=== PATIENT | male | born 1965 | race Caucasian/White ===

== ENCOUNTER 2017-11-01 11:53 | Emergency (ER) | payer SELFPAY ==
[~2017-11-01] VITALS: Ht 177.8 cm; Wt 83.9 kg
--- NOTE | 2017-11-01 12:52 | Diagnostic Imaging Report ---
EXAMINATION: Head CT HISTORY: Vertigo, left-sided weakness COMPARISON: Head CT on 06/19/2014 TECHNIQUE: Multidetector axial images were obtained without contrast from the foramen magnum to the vertex . The images were reconstructed using brain and bone algorithms. Thin section brain images were reformatted into coronal and sagittal planes. Intravenous contrast: None. Motion/streaking artifact limits the evaluation of the skull base and posterior cranial fossa. FINDINGS: Parenchyma: 1. No abnormal densities. 2. No mass or hemorrhage. No CT evidence of acute territorial vascular insult. Extra-axial spaces:No abnormal density. No extra-axial fluid collections Brain volume: Normal for age. Ventricles: No hydrocephalus or displacement. Stable asymmetry of the temporal horns with mild prominence of the right compared to the left, likely a variation of the anatomy, less likely related to volume loss. Arteries: No density suggestive of thrombus. Dural sinuses: No abnormal density. Extra-axial spaces: No abnormal density. Foramen magnum: No mass, Chiari malformation, or basilar invagination. Sella: No obvious mass. Paranasal/mastoid sinuses: Imaged portions unremarkable. Skull/Scalp: No lytic or blastic lesions. No fractures. IMPRESSION: No acute intracranial abnormalities, particularly no hemorrhage or acute cortical infarct. Signed by: Dr. Erica Cassidy M.D. on 11/01/2017 12:49 PM
--- NOTE | 2017-11-01 13:10 | Diagnostic Imaging Report ---
PROCEDURE: X-RAY CHEST, TWO VIEWS COMPARISON: None. INDICATIONS: DIZZINESS, HEADACHE FINDINGS: LUNGS: No consolidations or edema. PLEURA: No effusions or pneumothorax. HEART \T\ MEDIASTINUM: The heart is within normal size-limits. Tortuous thoracic aorta. BONES \T\ SOFT TISSUES: No acute findings. Partially visualized left cervical plate. CONCLUSION: No acute thoracic abnormality. Andrew Kumar D.O. Dictated by: Andrew Kumar D.O. on 11/01/2017 at 13:09 Electronically approved by: Andrew Kumar D.O. on 11/01/2017 at 13:09
[2017-11-01 14:01] LABS: BILIRUBIN,URINE NEGATIVE (NEGATIVE); KETONES,URINE NEGATIVE (NEGATIVE); LEUKOCYTE ESTERASE ,URINE NEGATIVE (NEGATIVE); NITRITE,URINE NEGATIVE (NEGATIVE); PROTEIN,URINE DIPSTICK NEGATIVE (NEGATIVE); URINE UROBILINOGEN 0.2 mg/dL (0.2 - 1)
[2017-11-01 14:06] LABS: CLARITY,URINE CLEAR (CLEAR); COLOR,URINE YELLOW (YELLOW)
[2017-11-01 14:23] LABS: BASOPHILS % 0.5 % (0.0-1.0); EOSINOPHILS # (AUTO) 0.1 (0.0-0.4); EOSINOPHILS % 1.7 % (0.0-6.0); HEMATOCRIT 50.3 % (38.2-49.6); HEMOGLOBIN 17.4 g/dL (14.0-18.0); LYMPHOCYTES # (AUTO) 2.3 (1.0-3.2); LYMPHOCYTES % 29.8 % (18.0-39.1); MEAN CORPUSCULAR HEMOGLOBIN 29.4 pg (28-32); MEAN CORPUSCULAR HGB CONC 34.6 g/dL (31-35); MONOCYTES # (AUTO) 0.4 (0.2-0.8); MONOCYTES % 4.7 % (4.4-11.3); PLATELET COUNT 197 x10e3/uL (140-360); RED BLOOD COUNT 5.92 x10e6/uL (4.3-5.7); RED CELL DISTRIBUTION WIDTH 12.3 % (11.7-14.4)
[2017-11-01 14:32] LABS: INR 1.03; PROTHROMBIN TIME 12.7 seconds (11.9-14.5)
[2017-11-01 14:33] LABS: PARTIAL THROMBOPLASTIN TIME 26.1 seconds (23.8-35.5)
[2017-11-01 14:42] LABS: ALANINE AMINOTRANSFERASE 27 IU/L (0-55); ALBUMIN 4.2 g/dL (3.5-5.0); ALBUMIN/GLOBULIN RATIO 1.2 (0.8-2.0); ALKALINE PHOSPHATASE 79 IU/L (40-150); ANION GAP 12.9 mmol/L (8-16); BLOOD UREA NITROGEN 22 mg/dL (7-26); BUN/CREATININE RATIO 22 (6-25); CALCIUM 9.4 mg/dL (8.4-10.2); CARBON DIOXIDE 26 mmol/L (22-29); CHLORIDE 106 mmol/L (98-107); CREATINE KINASE 225 IU/L (30-200); CREATININE, SERUM 0.99 mg/dL (0.72-1.25); EST GLOMERULAR FILTRATION RATE > 60 ML/MIN (60-); GLUCOSE 74 mg/dL (74-118); POTASSIUM 3.9 mmol/L (3.5-5.1); SODIUM 141 mmol/L (136-145)
[2017-11-01] MEDS ORDERED: METOCLOPRAMIDE HCL 10 MG/2ML VIAL IV ONE (16:15)
[2017-11-01] MEDS ORDERED: DIPHENHYDRAMINE HCL INJ 50 MG/ML VIAL IV ONE (16:15)
[2017-11-01] MEDS ORDERED: SODIUM CHLORIDE 0.9% 500ML 500 ML IV ONE (16:15)
--- NOTE | 2017-11-01 16:51 | Diagnostic Imaging Report ---
EXAMINATION: CT angiogram of the [place] and neck with contrast CLINICAL HISTORY: Severe dizzy spells COMPARISON: None available TECHNIQUE: The head and neck was scanned utilizing a multidetector helical scanner from the thoracic inlet to the vertex after the I.V contrast administration of 100 mL of Isovue 370 mg . Multiplanar sagittal and coronal reconstructions were performed as well. FINDINGS: The are no areas of abnormal density or enhancement in the brain. There is no mass, hemorrhage or extra-axial fluid collection. The CSF containing spaces are normal in size, position and configuration. CT ANGIOGRAM OF THE [place]: The internal carotid artery segments as well as the middle cerebral and anterior cerebral arteries are normal in caliber. The vertebro-basilar circulation is normal. No vascular malformation or aneurysmal dilatation is seen. The draining venous structures are normal and patent. Anatomic variation: Anterior Communicating Artery: Nonvisualized Posterior Communicating Arteries: Patent bilaterally Vertebral arteries: The left is dominant CT ANGIOGRAM OF THE NECK: If present, stenosis of the carotid bulbs is measured based on NASCET criteria i.e area of maximum stenosis compared to the cervical ICA distal to the bulb. The origin of the vessels is patent bilaterally. Carotid bulbs: Minimal calcified atherosclerotic plaque in the left carotid bulb without associated stenosis (0%). Unremarkable right carotid bulb Right Carotid Artery: The common carotid, internal and external carotid arteries at the level of the neck are normal in caliber, and patent, no evidence of stenoses. Left carotid artery: The common carotid, internal and external carotid arteries at the level of the neck are normal in caliber, and patent, no evidence of stenoses. Vertebral Arteries: Both are normal in morphology and caliber. Both are codominant. No significant stenosis is seen. Incidental findings: Status post ACDF from C3 to C7. Few dental cavities and periapical lucencies. IMPRESSION: Unremarkable CT angiogram of the [place] and neck. Particularly no major vessel occlusion or hemodynamically significant stenosis is seen in the head or neck. Signed by: Dr. Erica Cassidy M.D. on 11/01/2017 4:48 PM
--- NOTE | 2017-11-01 16:51 | Diagnostic Imaging Report ---
EXAMINATION: CT angiogram of the [place] and neck with contrast CLINICAL HISTORY: Severe dizzy spells COMPARISON: None available TECHNIQUE: The head and neck was scanned utilizing a multidetector helical scanner from the thoracic inlet to the vertex after the I.V contrast administration of 100 mL of Isovue 370 mg . Multiplanar sagittal and coronal reconstructions were performed as well. FINDINGS: The are no areas of abnormal density or enhancement in the brain. There is no mass, hemorrhage or extra-axial fluid collection. The CSF containing spaces are normal in size, position and configuration. CT ANGIOGRAM OF THE [place]: The internal carotid artery segments as well as the middle cerebral and anterior cerebral arteries are normal in caliber. The vertebro-basilar circulation is normal. No vascular malformation or aneurysmal dilatation is seen. The draining venous structures are normal and patent. Anatomic variation: Anterior Communicating Artery: Nonvisualized Posterior Communicating Arteries: Patent bilaterally Vertebral arteries: The left is dominant CT ANGIOGRAM OF THE NECK: If present, stenosis of the carotid bulbs is measured based on NASCET criteria i.e area of maximum stenosis compared to the cervical ICA distal to the bulb. The origin of the vessels is patent bilaterally. Carotid bulbs: Minimal calcified atherosclerotic plaque in the left carotid bulb without associated stenosis (0%). Unremarkable right carotid bulb Right Carotid Artery: The common carotid, internal and external carotid arteries at the level of the neck are normal in caliber, and patent, no evidence of stenoses. Left carotid artery: The common carotid, internal and external carotid arteries at the level of the neck are normal in caliber, and patent, no evidence of stenoses. Vertebral Arteries: Both are normal in morphology and caliber. Both are codominant. No significant stenosis is seen. Incidental findings: Status post ACDF from C3 to C7. Few dental cavities and periapical lucencies. IMPRESSION: Unremarkable CT angiogram of the [place] and neck. Particularly no major vessel occlusion or hemodynamically significant stenosis is seen in the head or neck. Signed by: Dr. Erica Cassidy M.D. on 11/01/2017 4:48 PM
[2017-11-01 17:19] VITALS: BP 145/88
[2017-11-01] MEDS ORDERED: SODIUM CHLORIDE 0.9% 50ML 100 ML ONE (18:01)
[2017-11-01] MEDS ORDERED: IOPAMIDOL 370 MG/ML 200 ML INFUS..BTL INJ ONE (18:01)
== END 2017-11-01 17:22 | disposition home or self-care (01) ==
LOC: ER 11:53
DX: R51 Headache (principal)
CPT/HCPCS: 36415; 70450; 70496; 70498; 71046; 80053; 81001; 82550; 82553; 84484; 85025; 85610; 85730; 87086; 93005; 99284; J1200; J2765; J7040; Q9967

== ENCOUNTER 2020-02-21 11:52 | Emergency (ER) | payer SELFPAY ==
[~2020-02-21] VITALS: Ht 177.8 cm; Wt 90.7 kg
[2020-02-21] MEDS ORDERED: ONDANSETRON HCL INJ 2MG/ML 2ML 2 MG/ML VIAL IV STA (12:55)
[2020-02-21] MEDS ORDERED: MORPHINE SULFATE INJ 4 MG/ML INJ 1ML IV PRN (13:00)
[2020-02-21 13:27] LABS: BILIRUBIN,URINE NEGATIVE (NEGATIVE); CLARITY,URINE CLEAR (CLEAR); COLOR,URINE YELLOW (YELLOW); KETONES,URINE NEGATIVE (NEGATIVE); LEUKOCYTE ESTERASE ,URINE NEGATIVE (NEGATIVE); NITRITE,URINE NEGATIVE (NEGATIVE); PROTEIN,URINE DIPSTICK NEGATIVE (NEGATIVE); URINE UROBILINOGEN 0.2 mg/dL (0.2 - 1)
[2020-02-21 13:38] LABS: BASOPHILS % 0.5 % (0.0-1.0); EOSINOPHILS # (AUTO) 0.1 (0.0-0.4); EOSINOPHILS % 2.4 % (0.0-6.0); HEMATOCRIT 51.1 % (38.2-49.6); HEMOGLOBIN 17.1 g/dL (14.0-18.0); LYMPHOCYTES # (AUTO) 2.2 (1.0-3.2); LYMPHOCYTES % 38.3 % (18.0-39.1); MEAN CORPUSCULAR HEMOGLOBIN 28.6 pg (28-32); MEAN CORPUSCULAR HGB CONC 33.5 g/dL (31-35); MEAN CORPUSCULAR VOLUME 85.6 fL (81-99); MONOCYTES # (AUTO) 0.5 (0.2-0.8); MONOCYTES % 8.6 % (4.4-11.3); NEUTROPHILS # (AUTO) 2.9 (2.1-6.9); NEUTROPHILS % 49.9 % (38.7-80.0); PLATELET COUNT 191 x10e3/uL (140-360); RED BLOOD COUNT 5.97 x10e6/uL (4.3-5.7); RED CELL DISTRIBUTION WIDTH 12.5 % (11.7-14.4)
[2020-02-21 13:39] LABS: EPITHELIAL CELLS,URINE RARE /LPF; WBC,URINE (MAN) 0-5 /HPF (0-5)
--- NOTE | 2020-02-21 14:01 | Diagnostic Imaging Report ---
EXAMINATION: CHEST SINGLE (PORTABLE) INDICATION: Abdominal pain COMPARISON: None FINDINGS: LINES/TUBES:None LUNGS:The lungs are well-inflated. No focal consolidation or pulmonary edema. PLEURA:No pleural effusion or pneumothorax. MEDIASTINUM:The cardiomediastinal silhouette appears normal in size and shape. BONES/SOFT TISSUES:No acute osseous injury. Partially visualized cervical spine fusion hardware. ABDOMEN:No free air under the diaphragm. IMPRESSION: No focal pneumonia or pulmonary edema. Signed by: Phil Weeks MD on 02/21/2020 1:58 PM
[2020-02-21 14:02] LABS: ALANINE AMINOTRANSFERASE 51 IU/L (0-55); ALBUMIN 4.4 g/dL (3.5-5.0); ALBUMIN/GLOBULIN RATIO 1.1 (0.8-2.0); ALKALINE PHOSPHATASE 106 IU/L (40-150); ANION GAP 12.6 mmol/L (8-16); BLOOD UREA NITROGEN 18 mg/dL (7-26); BUN/CREATININE RATIO 17 (6-25); CALCIUM 9.8 mg/dL (8.4-10.2); CARBON DIOXIDE 26 mmol/L (22-29); CHLORIDE 104 mmol/L (98-107); CREATINE KINASE 179 IU/L (30-200); CREATININE, SERUM 1.09 mg/dL (0.72-1.25); EST GLOMERULAR FILTRATION RATE > 60 ML/MIN (60-); GLUCOSE 74 mg/dL (74-118); POTASSIUM 3.6 mmol/L (3.5-5.1); SODIUM 139 mmol/L (136-145)
--- NOTE | 2020-02-21 14:28 | Emergency Department Note ---
History of Present Illnes History of Present Illness Chief Complaint: Abdominal Complaints History of Present Illness This is a 54 year old male admitted to the ED with history of right lower quadrant abdominal pain worse with motion. Historian: Patient Arrival Mode: Car Collector Required: No Onset (how long ago): week(s) Radiation: Reports non-radiation Severity: moderate Progression: worsening Chronicity: new Associated symptoms: Reports denies other symptoms Past Medical/Family History Physician Review I have reviewed the patient's past medical and family history. Any updates have been documented here. Past Medical History Recent Fever: No Clinical Suspicion of Infectio: No New/Unexplained Change in Ment: No Past Medical History: Chronic Back Pain Past Surgical History: Back Surgery Other Surgery: ACDF - 2008 LUM MARY - 2000 Social History Smoking Cessation: Former smoker Counseling Performed: No Alcohol Use: None Any Illegal Drug Use: No TB Exposure/Symptoms: No Physically hurt or threatened: No Family History Family history of heart diseas: No Other Last Tetanus: UNKNOWN Any Pre-Existing Lines (PICC,: No Is patient up to date on immun: Yes Last Flu: OOD Last Pneumovax: NA Review of Systems Review of Systems Constitutional: Reports no symptoms EENTM: Reports no symptoms Cardiovascular: Reports no symptoms Respiratory: Reports no symptoms Gastrointestinal: Reports no symptoms, Reports as per HPI, Reports abdominal pain, Reports nausea; Denies diarrhea, Denies vomiting Genitourinary: Reports no symptoms Musculoskeletal: Reports no symptoms Integumentary: Reports no symptoms Neurological: Reports no symptoms Psychological: Reports no symptoms Endocrine: Reports no symptoms Hematological/Lymphatic: Reports no symptoms Physical Exam Related Data Allergies: Coded Allergies: No Known Allergies (Unverified , 11/01/17) Triage Vital Signs Vital Signs Date Time Temp Pulse Resp B/P (MAP) Pulse Ox O2 Delivery O2 Flow Rate FiO2 02/21/20 12:04 98.3 74 16 161/101 99 Vital signs reviewed: Yes Physical Exam CONSTITUTIONAL Constitutional: Present well-developed, Present well-nourished HENT HENT: Present normocephalic, Present atraumatic, Present oropharynx clear/moist, Present nose normal HENT L/R: Present left ext ear normal, Present right ext ear normal EYES Eyes: Reports PERRL, Reports conjunctivae normal NECK Neck: Present ROM normal PULMONARY Pulmonary: Present effort normal, Present breath sounds normal CARDIOVASCULAR Cardiovascular: Present regular rhythm, Present heart sounds normal, Present c apillary refill normal, Present normal rate GASTROINTESTINAL Abdominal: Present soft, Present bowel sounds normal, Present tender GENITOURINARY Genitourinary: Present exam deferred SKIN Skin: Present warm, Present dry MUSCULOSKELETAL Musculoskeletal: Present ROM normal NEUROLOGICAL Neurological: Present alert, Present oriented x 3, Present no gross motor or sensory deficits PSYCHOLOGICAL Psychological: Present mood/affect normal, Present judgement normal Results Laboratory Result Diagram: 02/21/20 1300 02/21/20 1300 Laboratory Laboratory Tests Test 02/21/20 13:00 02/21/20 12:50 White Blood Count 5.83 x10e3/uL (4.8-10.8) Red Blood Count 5.97 x10e6/uL (4.3-5.7) Hemoglobin 17.1 g/dL (14.0-18.0) Hematocrit 51.1 % (38.2-49.6) Mean Corpuscular Volume 85.6 fL (81-99) Mean Corpuscular Hemoglobin 28.6 pg (28-32) Mean Corpuscular Hemoglobin Concent 33.5 g/dL (31-35) Red Cell Distribution Width 12.5 % (11.7-14.4) Platelet Count 191 x10e3/uL (140-360) Neutrophils (%) (Auto) 49.9 % (38.7-80.0) Lymphocytes (%) (Auto) 38.3 % (18.0-39.1) Monocytes (%) (Auto) 8.6 % (4.4-11.3) Eosinophils (%) (Auto) 2.4 % (0.0-6.0) Basophils (%) (Auto) 0.5 % (0.0-1.0) Neutrophils # (Auto) 2.9 (2.1-6.9) Lymphocytes # (Auto) 2.2 (1.0-3.2) Monocytes # (Auto) 0.5 (0.2-0.8) Eosinophils # (Auto) 0.1 (0.0-0.4) Basophils # (Auto) 0.0 (0.0-0.1) Absolute Immature Granulocyte (auto 0.02 x10e3/uL (0-0.1) Sodium Level 139 mmol/L (136-145) Potassium Level 3.6 mmol/L (3.5-5.1) Chloride Level 104 mmol/L (98-107) Carbon Dioxide Level 26 mmol/L (22-29) Anion Gap 12.6 mmol/L (8-16) Blood Urea Nitrogen 18 mg/dL (7-26) Creatinine 1.09 mg/dL (0.72-1.25) Estimat Glomerular Filtration Rate > 60 ML/MIN (60-) BUN/Creatinine Ratio 17 (6-25) Glucose Level 74 mg/dL (74-118) Calcium Level 9.8 mg/dL (8.4-10.2) Total Bilirubin 0.3 mg/dL (0.2-1.2) Aspartate Amino Transf (AST/SGOT) 28 IU/L (5-34) Alanine Aminotransferase (ALT/SGPT) 51 IU/L (0-55) Alkaline Phosphatase 106 IU/L (40-150) Creatine Kinase 179 IU/L (30-200) Creatine Kinase MB 1.00 ng/mL (0-4.3) Troponin I < 0.05 ng/mL (0.0-0.40) Total Protein 8.3 g/dL (6.5-8.1) Albumin 4.4 g/dL (3.5-5.0) Globulin 3.9 g/dL (2.3-3.5) Albumin/Globulin Ratio 1.1 (0.8-2.0) Lipase 21 U/L (8-78) Urine Color Yellow (YELLOW) Urine Clarity Clear (CLEAR) Urine pH 5.5 (5 - 7) Urine Specific [place] >=1.030 (1.010-1.025) Urine Protein Negative (NEGATIVE) Urine Glucose (UA) Negative (NEGATIVE) Urine Ketones Negative (NEGATIVE) Urine Blood Negative (NEGATIVE) Urine Nitrite Negative (NEGATIVE) Urine Bilirubin Negative (NEGATIVE) Urine Urobilinogen 0.2 mg/dL (0.2 - 1) Urine Leukocyte Esterase Negative (NEGATIVE) Urine RBC None /HPF (0-5) Urine WBC 0-5 /HPF (0-5) Urine Epithelial Cells Rare /LPF (NONE) Urine Bacteria None /HPF (NONE) Lab results reviewed: Yes Imaging Imaging results reviewed: Yes Procedures 12 Lead ECG Interpretation ECG Interpretation : ECG: ECG 1 Collector: Interpreted by ED physician Rhythm: sinus bradycardia QRS axis: normal ST segments normal: Yes T waves normal: Yes Clinical Impression: normal ECG Assessment & Plan Medical Decision Making MDM 54-year-old male arrives to the ED with complaints of right lower quadrant abdominal pain for one month. Patient clinically appeared uncomfortable upon arrival, lab work and imaging performed in the emergency department unremarkable. EKG, cardiac markers and chest x-ray done to ensure no atypical presentation of acute coronary syndrome was missed in the emergency department. The preceding findings were also normal. Patient discharged home with outpatient gastroenterology follow-up, I personally made the appointment the patient to go to the outpatient clinic. Assessment & Plan Final Impression: (1) Abdominal pain Depart Disposition: HOME, SELF-CARE Last Vital Signs Date Time Temp Pulse Resp B/P (MAP) Pulse Ox O2 Delivery O2 Flow Rate FiO2 02/21/20 13:25 56 18 139/100 98 02/21/20 12:04 98.3 Home Meds Active Scripts Tramadol Hcl (ULTRAM) 50 Mg Tablet, 50 MG PO Q6HR PRN for ABDOMINAL PAIN, #12 TAB Prov:BLANE MOSELEY DO 02/21/20 Medications in the ED Morphine Sulfate 6 mg ONCE PRN IV SEVERE PAIN (7-10) Last administered on 02/21/20at 13:26; Admin Dose 6 MG; Start 02/21/20 at 13:00; Stop 02/28/20 at 12:59 Ondansetron HCl 4 mg NOW STAT IV Last administered on 02/21/20at 13:26; Admin Dose 4 MG; Start 02/21/20 at 12:55; Stop 02/21/20 at 12:59; Status DC BLANE MOSELEY DO Feb 21, 2020 14:11
--- NOTE | 2020-02-21 16:17 | Diagnostic Imaging Report ---
EXAM: CT Abdomen and Pelvis WITH intravenous contrast INDICATION: Abdominal pain COMPARISON: None. TECHNIQUE: Abdomen and pelvis were scanned utilizing a multidetector helical scanner from the lung base to the pubic symphysis after administration of IV contrast. Coronal and sagittal reformations were obtained. Routine protocol was performed. Scan was performed during portal venous phase. IV CONTRAST: 100mL of Isovue 370 ORAL CONTRAST: Water RADIATION DOSE: Total DLP: (DLP x 0.015 x size factor) mGy*cm Dose modulation, iterative reconstruction, and/or weight based adjustment of the mA/kV was utilized to reduce the radiation dose to as low as reasonably achievable. FINDINGS: LOWER THORAX: Normal. HEPATOBILIARY: Diffuse hepatic steatosis. No focal liver lesion. No biliary ductal dilation. Unremarkable gallbladder. SPLEEN: No splenomegaly. PANCREAS: No focal masses or ductal dilatation. ADRENALS: No adrenal nodules. KIDNEYS/URETERS: No hydronephrosis, stones, or solid mass lesions. Left lower pole 1.5 cm renal cyst. PELVIC ORGANS/BLADDER: Marked prostatomegaly measuring up to 6.2 x 5.4 x 4.9 cm (volume estimate 86cc) PERITONEUM / RETROPERITONEUM: No free air or fluid. LYMPH NODES: No lymphadenopathy. VESSELS: Unremarkable. GI TRACT: No abnormal bowel thickening. No bowel obstruction. Normal appendix. BONES AND SOFT TISSUES: No acute osseous injury. No suspicious lytic or blastic lesions. IMPRESSION: No acute findings in the abdomen or pelvis. Diffuse hepatic steatosis. Marked prostatomegaly. Signed by: Phil Weeks MD on 02/21/2020 4:14 PM
[2020-02-21] MEDS ORDERED: ULTRAM50 MG PO (16:50)
[2020-02-21] MEDS ORDERED: IOPAMIDOL 370 MG/ML 200 ML INFUS..BTL INJ ONE (18:18)
[2020-02-21] MEDS ORDERED: SODIUM CHLORIDE 0.9% 50ML 0 ML ONE (18:18)
== END 2020-02-21 17:47 | disposition home or self-care (01) ==
LOC: ER 11:52
DX: R10.31 Right lower quadrant pain (principal); R11.0 Nausea; R19.7 Diarrhea, unspecified; M54.9 Dorsalgia, unspecified; G89.29 Other chronic pain
CPT/HCPCS: 36415; 71045; 74177; 80053; 81001; 82550; 82553; 83690; 84484; 85025; 93005; 99284; J2270; J2405; Q9967

== ENCOUNTER 2021-06-09 20:41 | Emergency (ER) | payer SELFPAY ==
[~2021-06-09] VITALS: Ht 177.8 cm; Wt 90.7 kg
[~2021-06-09 20:41] MED LIST: ULTRAM50 MG PO
[2021-06-09 21:15] LABS: CLARITY,URINE CLOUDY (CLEAR); COLOR,URINE YELLOW (YELLOW); KETONES,URINE NEGATIVE (NEGATIVE); LEUKOCYTE ESTERASE ,URINE MODERATE (NEGATIVE); NITRITE,URINE POSITIVE (NEGATIVE); PROTEIN,URINE DIPSTICK 2+ (NEGATIVE)
[2021-06-09 21:16] LABS: URINE UROBILINOGEN 0.2 mg/dL (0.2 - 1)
[2021-06-09 21:28] LABS: BACTERIA,URINE MANY /HPF; WBC,URINE (MAN) 21-50 /HPF (0-5)
[2021-06-09] MEDS ORDERED: CEPHALEXIN500 MG PO (21:55)
[2021-06-09] MEDS ORDERED: CEPHALEXIN 500 MG CAP PO SCH (22:00)
[2021-06-09] MEDS ORDERED: CEPHALEXIN 500 MG CAP ONE (22:06)
== END 2021-06-09 22:48 | disposition home or self-care (01) ==
LOC: ER 20:55
DX: Z46.6 Encounter for fitting and adjustment of urinary device (principal); N39.0 Urinary tract infection, site not specified; R50.9 Fever, unspecified
CPT/HCPCS: 81001; 87086; 87186; 99283

== ENCOUNTER 2022-01-10 17:34 | Emergency (ER) | payer SELFPAY ==
[~2022-01-10] VITALS: Ht 177.8 cm; Wt 90.7 kg
[~2022-01-10 17:34] MED LIST changes: +CEPHALEXIN500 MG PO
[2022-01-10 18:21] LABS: BASOPHILS # (AUTO) 0.1 (0.0-0.1); BASOPHILS % 0.8 % (0.0-1.0); EOSINOPHILS # (AUTO) 0.5 (0.0-0.4); HEMATOCRIT 48.2 % (38.2-49.6); HEMOGLOBIN 16.3 g/dL (14.0-18.0); LYMPHOCYTES # (AUTO) 4.9 (1.0-3.2); LYMPHOCYTES % 41.2 % (18.0-39.1); MEAN CORPUSCULAR HGB CONC 33.8 g/dL (31-35); MEAN CORPUSCULAR VOLUME 91.6 fL (81-99); MONOCYTES # (AUTO) 1.1 (0.2-0.8); MONOCYTES % 9.7 % (4.4-11.3); NEUTROPHILS # (AUTO) 5.2 (2.1-6.9); NEUTROPHILS % 43.9 % (38.7-80.0); PLATELET COUNT 432 x10e3/uL (140-360); RED BLOOD COUNT 5.26 x10e6/uL (4.3-5.7); RED CELL DISTRIBUTION WIDTH 13.6 % (11.7-14.4)
[2022-01-10 18:43] LABS: ALBUMIN 4.1 g/dL (3.5-5.0); ANION GAP 14.7 mmol/L (8-16); CALCIUM 9.8 mg/dL (8.4-10.2); CREATININE, SERUM 1.11 mg/dL (0.72-1.25); LIPASE 20 U/L (8-78); POTASSIUM 3.7 mmol/L (3.5-5.1)
[2022-01-10 19:22] VITALS: BP 159/90
== END 2022-01-10 19:22 | disposition home or self-care (01) ==
LOC: ER 17:40
DX: R07.89 Other chest pain (principal); R51.9 Headache, unspecified; M54.9 Dorsalgia, unspecified; G89.29 Other chronic pain
CPT/HCPCS: 36415; 70450; 71045; 72125; 80053; 83690; 84484; 85025; 93005; 99283

== ENCOUNTER 2025-04-15 14:50 | Inpatient (IN) | payer MEDICARE ==
[~2025-04-15] VITALS: Ht 182.9 cm; Wt 90.7 kg
[2025-04-15 16:39] VITALS: TEMP 98.8
[2025-04-15] MEDS ORDERED: ONDANSETRON HCL INJ 2MG/ML 2ML 2 MG/ML VIAL IV PRN (17:15)
[2025-04-15 17:20] LABS: BASOPHILS % 0.6 % (0.0-1.0); EOSINOPHILS % 6.4 % (0.0-6.0); LYMPHOCYTES % 20.5 % (18.0-39.1); MONOCYTES % 9.7 % (4.4-11.3); NEUTROPHILS % 62.4 % (38.7-80.0); RED CELL DISTRIBUTION WIDTH 14.0 % (11.7-14.4)
[2025-04-15 17:30] LABS: INR 0.88
[2025-04-15 17:40] LABS: EST GLOMERULAR FILTRATION RATE 75.0 ML/MIN (>=60)
[2025-04-15] MEDS: HYDROCODONE/APAP 10MG-325MG TAB PO PRN (18:14)
[2025-04-15] MEDS: VANCOMYCIN HCL 1.25 GM in SODIUM CHLORIDE 0.9% 250ML 250 ML IV ONE (18:56)
[2025-04-15 19:34] VITALS: PULSE 85; RESP 16
[2025-04-15 19:53] VITALS: BP 135/92; PULSE 77; RESP 18; TEMP 97.9; O2SAT 96
[2025-04-15 21:00] VITALS: BP 135/92; PULSE 77; RESP 18; TEMP 97.9; O2SAT 96
[2025-04-15] MEDS: Morphine 4mg INJECTION 4 MG/ML INJ IV PRN (22:35)
[2025-04-15] MEDS: ONDANSETRON HCL INJ 2MG/ML 2ML 2 MG/ML VIAL IV PRN (22:35)
[2025-04-15 23:31] VITALS: BP 144/77; PULSE 75; RESP 18; TEMP 98.1; O2SAT 98
[2025-04-16] MEDS ORDERED: MONTELUKAST SOD10 MG PO (00:59)
[2025-04-16] MEDS ORDERED: TRELEGY ELLIPT1 EACH (00:59)
[2025-04-16] MEDS ORDERED: OXYBUTYNIN CHLOR5 MG PO (00:59)
[2025-04-16] MEDS ORDERED: ZETIA10 MG PO (00:59)
[2025-04-16] MEDS ORDERED: SENOKOT-S TABL1 EACH PO (00:59)
[2025-04-16] MEDS ORDERED: AMITIZA24 MCG PO (00:59)
[2025-04-16] MEDS ORDERED: CLOPIDOGREL75 MG PO (00:59)
[2025-04-16] MEDS ORDERED: PROAIR DIGIHAL90 MCG (00:59)
[2025-04-16] MEDS ORDERED: AMLODIPINE BESY10 MG PO (00:59)
[2025-04-16] MEDS ORDERED: ONDANSETRON ODT4 MG PO (00:59)
[2025-04-16] MEDS ORDERED: NEURONTIN100 MG PO (00:59)
[2025-04-16] MEDS ORDERED: PRAZOSIN HCL5 MG PO (00:59)
[2025-04-16] MEDS ORDERED: MYSOLINE50 MG PO (00:59)
[2025-04-16] MEDS ORDERED: VENTOLIN HFA18 GM INH (00:59)
[2025-04-16] MEDS ORDERED: LYRICA75 MG PO (00:59)
[2025-04-16] MEDS ORDERED: LASIX10 MG/ML PO (00:59)
[2025-04-16] MEDS ORDERED: CELEBREX100 MG PO (00:59)
[2025-04-16] MEDS ORDERED: HYDRALAZINE HCL50 MG PO (00:59)
[2025-04-16] MEDS ORDERED: FLONASE ALLERG9.9 ML INH (00:59)
[2025-04-16] MEDS ORDERED: TIZANIDINE HCL4 MG PO (00:59)
[2025-04-16] MEDS ORDERED: ALBUTEROL 90 MCG/ACT INHALER INH PRN (01:45)
[2025-04-16 03:35] VITALS: BP 122/77; PULSE 83; RESP 18; TEMP 97.6; O2SAT 98
[2025-04-16 07:01] LABS: EST GLOMERULAR FILTRATION RATE 85.0 ML/MIN (>=60)
[2025-04-16 07:09] LABS: BASOPHILS % 0.7 % (0.0-1.0); EOSINOPHILS % 7.1 % (0.0-6.0); LYMPHOCYTES % 27.1 % (18.0-39.1); MONOCYTES % 9.8 % (4.4-11.3); NEUTROPHILS % 54.7 % (38.7-80.0); RED CELL DISTRIBUTION WIDTH 14.5 % (11.7-14.4)
[2025-04-16 07:12] LABS: CHOL/HDL RATIO 5.9 (3.9-4.7); LDL CHOLESTEROL 90.0 MG/DL (60-130)
[2025-04-16] MEDS: LUBIPROSTONE 24 MCG CAP PO SCH (09:17)
[2025-04-16] MEDS: MONTELUKAST SODIUM 10 MG TAB PO SCH (09:18)
[2025-04-16] MEDS: AMLODIPINE BESYLATE 10 MG TAB PO SCH (09:18)
[2025-04-16] MEDS: PREGABALIN 75 MG CAP PO SCH (09:19)
[2025-04-16 10:31] VITALS: PULSE 75; RESP 20; TEMP 98.1; O2SAT 98
[2025-04-16] MEDS: OXYBUTYNIN CHLORIDE XL 5 MG TAB PO SCH (13:30)
[2025-04-16 14:50] VITALS: BP 145/76; PULSE 77; RESP 20; TEMP 98.4; O2SAT 97
[2025-04-16] MEDS: LINEZOLID 600 MG TAB PO SCH (16:57)
[2025-04-16 17:08] VITALS: BP 149/77; PULSE 57; RESP 18; TEMP 98.8; O2SAT 95
[2025-04-16 20:00] VITALS: BP 135/73; PULSE 59; RESP 20; TEMP 98.1; O2SAT 90
[2025-04-17] VITALS (7 sets, daily range): BP systolic 134–151; BP diastolic 67–86; PULSE 59–74; RESP 18; TEMP 97.9–98.8; O2SAT 94–96
[2025-04-17] MEDS: CLOPIDOGREL BISULFATE 75 MG TAB PO SCH (08:45)
[2025-04-17 17:07] LABS: BASOPHILS % 0.5 % (0.0-1.0); EOSINOPHILS % 4.3 % (0.0-6.0); LYMPHOCYTES % 28.3 % (18.0-39.1); MONOCYTES % 12.9 % (4.4-11.3); NEUTROPHILS % 53.6 % (38.7-80.0); RED CELL DISTRIBUTION WIDTH 14.5 % (11.7-14.4)
[2025-04-17] MEDS ORDERED: IOPAMIDOL 370 MG/ML 100 ML INFUS..BTL INJ ONE (19:44)
[2025-04-18] VITALS (10 sets, daily range): BP systolic 124–137; BP diastolic 66–86; PULSE 53–83; RESP 18–20; TEMP 97–98.1; O2SAT 93–98
[2025-04-18] MEDS: BETAMETHASONE/CLOTRIMAZOLE CR 15 GM TUBE TOP SCH (17:47)
[2025-04-19] VITALS (11 sets, daily range): BP systolic 121–136; BP diastolic 71–78; PULSE 54–83; RESP 18–20; TEMP 97.5–98.1; O2SAT 95–98
[2025-04-19 06:32] LABS: BASOPHILS % 0.6 % (0.0-1.0); EOSINOPHILS % 6.3 % (0.0-6.0); LYMPHOCYTES % 31.0 % (18.0-39.1); MONOCYTES % 11.3 % (4.4-11.3); NEUTROPHILS % 50.5 % (38.7-80.0); RED CELL DISTRIBUTION WIDTH 14.1 % (11.7-14.4)
[2025-04-19 07:08] LABS: EST GLOMERULAR FILTRATION RATE 72.0 ML/MIN (>=60); PHOSPHORUS 3.7 MG/DL (2.3-4.7)
[2025-04-19] MEDS: SODIUM CHLORIDE 0.9% 250ML 250 ML ONE (14:57)
[2025-04-19] MEDS: PREDNISONE 20 MG TAB PO SCH (14:57)
[2025-04-20] VITALS (11 sets, daily range): BP systolic 111–154; BP diastolic 69–90; PULSE 53–82; RESP 18–20; TEMP 97.3–98.6; O2SAT 95–99
[2025-04-20] MEDS: ZINC SULFATE 50 MG CAP PO SCH (08:31)
[2025-04-20] MEDS: MULTIVITAMINS/MINERALS TAB PO SCH (08:32)
[2025-04-20] MEDS: CALCIUM CARBONATE/VITAMIN D3 500 MG TAB PO SCH (08:32)
[2025-04-20] MEDS: ASCORBIC ACID 500 MG TAB PO SCH (08:32)
[2025-04-21 03:33] VITALS: BP 146/89; PULSE 52; RESP 18; TEMP 97.7; O2SAT 97
[2025-04-21 06:55] VITALS: PULSE 71; RESP 20; O2SAT 95
[2025-04-21 07:49] VITALS: BP 133/81; PULSE 51; RESP 18; TEMP 97.7; O2SAT 98
[2025-04-21 07:56] VITALS: BP 133/81; PULSE 51; RESP 18; TEMP 97.7; O2SAT 98
[2025-04-21 11:48] VITALS: BP 136/78; PULSE 54; RESP 18; TEMP 98.4; O2SAT 95
[2025-04-21] MEDS ORDERED: ZYVOX600 MG PO (14:19)
== END 2025-04-21 14:43 | disposition home or self-care (01) | DRG 603 ==
LOC: ER 16:43 → ERHOLD 17:11 → MED/SURG3 19:40
PROVIDERS: ADMIT Internal Medicine; ATTEND Internal Medicine
DX: L03.116 Cellulitis of left lower limb (principal); I11.0 Hypertensive heart disease with heart failure; I50.9 Heart failure, unspecified; M54.9 Dorsalgia, unspecified; M25.552 Pain in left hip; D72.829 Elevated white blood cell count, unspecified; E66.01 Morbid (severe) obesity due to excess calories; K52.9 Noninfective gastroenteritis and colitis, unspecified; R51.9 Headache, unspecified; I25.10 Atherosclerotic heart disease of native coronary artery without angina pectoris; I73.9 Peripheral vascular disease, unspecified; J44.9 Chronic obstructive pulmonary disease, unspecified; G89.4 Chronic pain syndrome; H26.9 Unspecified cataract; I87.2 Venous insufficiency (chronic) (peripheral); M54.32 Sciatica, left side; H54.7 Unspecified visual loss; Z79.2 Long term (current) use of antibiotics; Z68.27 Body mass index [BMI] 27.0-27.9, adult; Z95.5 Presence of coronary angioplasty implant and graft; Z86.73 Personal history of transient ischemic attack (TIA), and cerebral infarction without residual deficits
CPT/HCPCS: 36415; 80048; 80053; 80061; 82550; 83036; 83735; 83880; 84100; 84484; 85025; 85610; 85730; 87040; 93005; 93971; 94799; 99252; 99284; J2270; J2405; J2543; J7050; J7512; Q9967